=== PATIENT | male | born 1965 | race Caucasian/White ===

== ENCOUNTER 2024-01-13 16:24 | Inpatient (IN) ==
[2024-01-13] MEDS: NS 0.9% 1000 ml BAG 1,000 ML IV ONE (17:30)
[2024-01-13] MEDS: Morphine 4 MG/ML VIAL (1 ml) IV ONE ×2 (17:30→19:56)
[2024-01-13 17:53] LABS: ABS Basophils 0.1 10^3/uL (0.0-0.1); ABS Eosinophils 0.2 10^3/uL (0.0-0.5); ABS Lymphocytes 1.3 10^3/uL (1.0-4.8); ABS Neutrophils 7.4 10^3/uL (1.5-7.6); Eosinophil % 2.3 %; Hematocrit 39.1 % (38-53); Hemoglobin 12.8 g/dL (13.2-16.3); Lymphocyte % 12.9 %; Mean Corpuscular Hemoglobin 28.5 pg (27-33); Mean Corpuscular Hgb Conc 32.7 g/dL (31-36); Mean Corpuscular Volume 87.2 fL (80-97); Mean Platelet Volume 8.3 fL (7.5-11.2); Platelet Count 290 10^3/uL (150-450); Red Blood Count 4.48 10^6/uL (4.06-5.63); White Blood Count 10.1 10^3/uL (3.6-10.2)
[2024-01-13 18:50] LABS: Albumin 4.1 g/dL (3.2-5.2); Albumin/Globulin Ratio 1.8 (1-3); C Reactive Protein 51.87 mg/L (<8.01); Calcium 8.8 mg/dL (8.6-10.3); Creatinine, Serum 0.9 mg/dL (0.67-1.17); Globulin 2.3 g/dL (2-4); Potassium 4.2 mmol/L (3.5-5.0); Total Bilirubin 0.4 mg/dL (0.2-1.0); Total Protein 6.4 g/dL (6.4-8.9); eGFR CKD-EPI 97.8 (>60)
[2024-01-13 20:43] LABS: Erythrocyte Sed Rate 28 mm/Hr (0-19)
[2024-01-13] MEDS ORDERED: Vancomycin 2,000 MG in NS 0.9% 250 ml 250 ML IVPB SCH (23:00)
[2024-01-13 23:27] LABS: Body Fluid Appearance Bloody; Body Fluid Color Red
[2024-01-13] MEDS: ceFAZolin 2 GM PREMIX 2 GM/50 ML BAG IV ONE ×2 (23:47→23:48)
[2024-01-13] MEDS: DOXYcycline 100 MG in NS 0.9% 250 ml 250 ML IVPB ONE (23:49)
[2024-01-14] MEDS: Morphine 4 MG/ML VIAL (1 ml) IV ONE (00:20)
[2024-01-14] MEDS: DOXYcycline 100 MG in NS 0.9% 250 ml 250 ML IVPB ONE (00:43)
[2024-01-14 01:53] LABS: Body Fluid Mono 6 %; Body Fluid Total Cells Counted 200
[2024-01-14] MEDS: Vancomycin 2,000 MG in NS 0.9% 250 ml 250 ML IVPB ONE (02:45)
[2024-01-14] MEDS ORDERED: Vancomycin per Pharmacy 1 EA NOTE FOLLOW UP PRN (02:53)
[2024-01-14 07:32] LABS: INR 1.13 (0.83-1.13)
[2024-01-14 08:10] LABS: ABS Basophils 0.1 10^3/uL (0.0-0.1); ABS Eosinophils 0.2 10^3/uL (0.0-0.5); ABS Lymphocytes 1.2 10^3/uL (1.0-4.8); ABS Monocytes 1.3 10^3/uL (0.0-1.1); Eosinophil % 2.2 %; Hematocrit 36.9 % (38-53); Hemoglobin 12.1 g/dL (13.2-16.3); Lymphocyte % 12.4 %; Mean Corpuscular Hemoglobin 28.6 pg (27-33); Mean Corpuscular Hgb Conc 32.9 g/dL (31-36); Mean Corpuscular Volume 86.9 fL (80-97); Mean Platelet Volume 8.5 fL (7.5-11.2); Platelet Count 269 10^3/uL (150-450); Red Blood Count 4.24 10^6/uL (4.06-5.63); White Blood Count 9.7 10^3/uL (3.6-10.2)
[2024-01-14 08:48] LABS: Albumin 3.6 g/dL (3.2-5.2); Albumin/Globulin Ratio 1.6 (1-3); Calcium 8.3 mg/dL (8.6-10.3); Creatinine, Serum 0.74 mg/dL (0.67-1.17); Globulin 2.2 g/dL (2-4); Magnesium 1.9 mg/dL (1.9-2.7); Potassium 4.1 mmol/L (3.5-5.0); Total Bilirubin 0.6 mg/dL (0.2-1.0); Total Protein 5.8 g/dL (6.4-8.9); eGFR CKD-EPI 103.7 (>60)
[2024-01-14 09:31] LABS: C Reactive Protein 64.52 mg/L (<8.01)
[2024-01-14] MEDS: Morphine 2 MG/ML SYRINGE IV PRN (14:28)
[2024-01-14] MEDS ORDERED: Vancomycin 1,500 MG in NS 0.9% 250 ml 250 ML IVPB SCH (15:00)
[2024-01-14] MEDS: Acetaminophen IV 1 GM/100ML 1,000 MG/100 ML BAG IV PRN (19:53)
[2024-01-14] MEDS ORDERED: Vancomycin 1,000 MG in NS 0.9% 250 ml 250 ML IVPB SCH (22:00)
[2024-01-14] MEDS ORDERED: Cefepime 1 GM in Dextrose 1 GM/50 ML BAG IV SCH (22:00)
[2024-01-14] MEDS: Cefepime 1 GM in Dextrose 1 GM/50 ML BAG IV SCH (22:41)
[2024-01-15] MEDS: Morphine 2 MG/ML SYRINGE IV PRN (03:11)
[2024-01-15] MEDS ORDERED: Magnesium Hydroxide LIQ 30 ML UDC PO PRN (09:37)
[2024-01-15] MEDS ORDERED: Senna TAB 8.6 mg TAB PO PRN (09:37)
[2024-01-15] MEDS ORDERED: Morphine 2 MG/ML SYRINGE IV PRN (09:38)
[2024-01-15 10:38] LABS: ABS Basophils 0.1 10^3/uL (0.0-0.1); ABS Eosinophils 0.1 10^3/uL (0.0-0.5); ABS Lymphocytes 1.2 10^3/uL (1.0-4.8); ABS Monocytes 1.4 10^3/uL (0.0-1.1); ABS Neutrophils 8.5 10^3/uL (1.5-7.6); Eosinophil % 0.9 %; Hematocrit 39.3 % (38-53); Hemoglobin 12.7 g/dL (13.2-16.3); Lymphocyte % 10.4 %; Mean Corpuscular Hgb Conc 32.3 g/dL (31-36); Mean Corpuscular Volume 86.7 fL (80-97); Mean Platelet Volume 8.3 fL (7.5-11.2); Platelet Count 301 10^3/uL (150-450); Red Blood Count 4.53 10^6/uL (4.06-5.63); Red Cell Distribution Width 14.8 % (12-17); White Blood Count 11.2 10^3/uL (3.6-10.2)
[2024-01-15] MEDS: ceFAZolin 1 GM ADVAN 1 GM in NS 0.9% 50 ML 50 ML IVPB SCH (13:34)
[2024-01-15] MEDS ORDERED: Vancomycin Trough Check NOTE FOLLOW UP ONE (14:30)
[2024-01-15] MEDS ORDERED: Vancomycin per Pharmacy 1 EA NOTE FOLLOW UP PRN (14:31)
[2024-01-15] MEDS: Vancomycin 2,000 MG in NS 0.9% 500 ml BAG 500 ML IVPB ONE (17:43)
[2024-01-15 17:47] LABS: Body Fluid Appearance Cloudy; Body Fluid Color Amber; Body Fluid Source Synovial Fluid
[2024-01-15 17:49] LABS: Body Fluid Total Nucleated 38 /mcL
[2024-01-15 18:19] LABS: Body Fluid Mono 10 %; Body Fluid NRBC 2; Body Fluid Total Cells Counted 200
[2024-01-15] MEDS ORDERED: cefTRIAXone 1 gm/50 mL D5W 1 GM/50 ML BAG IV SCH (21:00)
[2024-01-16] MEDS: Vancomycin 2,000 MG in NS 0.9% 500 ml BAG 500 ML IVPB SCH (05:13)
[2024-01-16 06:50] LABS: Hematocrit 36.2 % (38-53); Mean Corpuscular Hemoglobin 28.9 pg (27-33); Mean Corpuscular Hgb Conc 33.2 g/dL (31-36); Platelet Count 281 10^3/uL (150-450); Red Blood Count 4.16 10^6/uL (4.06-5.63); Red Cell Distribution Width 14.7 % (12-17); White Blood Count 9.4 10^3/uL (3.6-10.2)
[2024-01-16 07:27] LABS: Albumin 3.4 g/dL (3.2-5.2); Albumin/Globulin Ratio 1.5 (1-3); Calcium 8.3 mg/dL (8.6-10.3); Globulin 2.3 g/dL (2-4); Potassium 4.3 mmol/L (3.5-5.0); Total Bilirubin 0.4 mg/dL (0.2-1.0); Total Protein 5.7 g/dL (6.4-8.9)
[2024-01-16 08:05] LABS: C Reactive Protein 104.07 mg/L (<8.01); Creatinine, Serum 0.8 mg/dL (0.67-1.17); eGFR CKD-EPI 101.3 (>60)
[2024-01-16 13:04] LABS: Anaplasma phagocytophilum Negative (Negative); B. miyamotoi PCR, B Negative (Negative); Babesia divergens/MO-1 Negative (Negative); Babesia ducani Negative (Negative); Ehrlichia chaffeensis Negative (Negative); Ehrlichia ewingii/canis Negative (Negative); Ehrlichia muris eauclairensis Negative (Negative)
[2024-01-17 07:24] LABS: Creatinine, Serum 0.72 mg/dL (0.67-1.17); Vancomycin Trough 8.4 mcg/mL; eGFR CKD-EPI 104.6 (>60)
[2024-01-17] MEDS: Vancomycin Trough Check NOTE FOLLOW UP ONE (08:13)
[2024-01-17 09:15] LABS: C Reactive Protein 83.94 mg/L (<8.01)
[2024-01-17 10:26] VITALS: BP 134/86
[2024-01-17] MEDS ORDERED: Vancomycin 1,250 MG in NS 0.9% 250 ml 250 ML IVPB SCH (17:00)
[2024-01-18] MEDS ORDERED: Vancomycin Trough Check NOTE FOLLOW UP ONE (08:30)
[2024-01-18 17:29] LABS: B. burgdorferi PCR Negative (Negative); B. garinii/B. afzellii PCR Negative (Negative)
== END 2024-01-17 14:54 | disposition home or self-care (01) | DRG 344 ==
LOC: ED 16:24 → EDHOLD 23:48 → SUATTDRO 23:48 → EDHOLD 01-14 14:43 → MED 01-14 15:57
PROVIDERS: ADMIT Hospitalist; ATTEND Internal Medicine